=== PATIENT | male | born 1935 | race Caucasian/White ===

== ENCOUNTER → 2016-05-02 | Outpatient (CLI) | payer OTHER, MEDICARE ==
[~2016-05-02] MED LIST: ASPI-461 PO; CALC-354 PO; MULTTAB58 PO; PRS5 PO
--- NOTE | 2016-05-02 10:46 | DIAGNOSTIC IMAGING REPORT ---
ULTRASOUND KIDNEYS AND BLADDER CLINICAL HISTORY: Prostatomegaly. Dysuria. COMPARISON STUDY: Abdominal CT dated 10/25/2008. TECHNIQUE: Real-time, grayscale, and color flow sonography of the kidneys and bladder is performed. Images are reviewed in the transverse and longitudinal planes. FINDINGS: Kidneys: The kidneys demonstrate cortical atrophy. The right kidney measures 10.0 x 4.9 x 5.4 cm and the left kidney measures 10.7 x 4.5 x 5.4 cm. There is no hydronephrosis. No shadowing renal calculi are identified. Small cortical and parapelvic left renal cysts measure up to 2.3 cm. There is no sonographic evidence of solid renal mass lesion. No perinephric fluid is identified. Bladder: The prostate gland appears mildly enlarged and heterogeneous. The bladder wall appears slightly thickened and trabeculated suggesting the sequelae of chronic outlet obstruction. Bilateral ureteral jets were seen. IMPRESSION: 1. The kidneys demonstrate cortical atrophy and are without hydronephrosis. 2. 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 Electronically signed by: Jus Graves M.D. 05/02/2016 10:44 AM Dictated Date/Time: 05/02/2016 10:42 AM
[2016-05-02 13:12] LABS: HEMATOCRIT 44.2 % (42-52); MEAN CELL VOLUME 94.4 fL (80-100); MEAN CORPUSCULAR HEMOGLOBIN 31.6 pg (25-34); MEAN CORPUSCULAR HGB CONC 33.5 g/dl (32-36); MEAN PLATELET VOLUME 10.8 fL (7.4-10.4); PLATELET COUNT 271 K/uL (130-400); RED BLOOD COUNT 4.68 M/uL (4.7-6.1); WHITE BLOOD COUNT 5.87 K/uL (4.8-10.8)
[2016-05-02 13:26] LABS: URINE APPEARANCE CLEAR (CLEAR); URINE BILIRUBIN NEG (NEG); URINE COLOR YELLOW; URINE NITRITE NEG (NEG); URINE SPECIFIC GRAVITY 1.016 (1.000-1.030); UROBILINOGEN NEG (NEG)
[2016-05-02 13:34] LABS: MANUAL MICROSCOPIC REQUIRED? NO; REVIEW REQ? NO
[2016-05-02 13:47] LABS: URINE PROTIEN/CREAT RATIO 0.1 (0-0.2); URINE TOTAL PROTEIN 18.7 mg/dl (0-11.9)
[2016-05-02 13:50] LABS: BLOOD UREA NITROGEN 17 mg/dl (7-18); BUN/CREATININE RATIO 12.3 (10-20); CALCIUM 8.8 mg/dl (8.5-10.1); CARBON DIOXIDE 25 mmol/L (21-32); CHLORIDE 105 mmol/L (98-107); GLUCOSE 104 mg/dl (70-99); POTASSIUM 3.9 mmol/L (3.5-5.1); SODIUM 140 mmol/L (136-145)
[2016-05-02 13:54] LABS: PHOSPHORUS 3.5 mg/dl (2.5-4.9)
== END | disposition home or self-care (01) ==
LOC: C.ULTRBC 09:13
PROVIDERS: ATTEND Internal Medicine Nephrology
DX: N18.3 Chronic kidney disease, stage 3 (moderate) (principal); R31.29 Other microscopic hematuria; N40.0 Benign prostatic hyperplasia without lower urinary tract symptoms; N30.10 Interstitial cystitis (chronic) without hematuria; N26.1 Atrophy of kidney (terminal); R82.99 Other abnormal findings in urine

== ENCOUNTER → 2016-06-14 | Outpatient (CLI) | payer OTHER, MEDICARE | END | disposition home or self-care (01) | LOC: C.PATHSPEC 11:02 | PROVIDERS: ATTEND Urology | DX: N40.0 Benign prostatic hyperplasia without lower urinary tract symptoms (principal) ==

== ENCOUNTER → 2017-03-26 | Outpatient (CLI) | payer OTHER, MEDICARE ==
[2017-03-26 12:26] LABS: BASO % 0.7 %; BASO ABS # 0.05 K/uL (0-0.2); COMPLETE YES; EOS % 0.7 %; HEMATOCRIT 50.9 % (42-52); IG% 0.1 %; LYMPH % 24.5 %; LYMPH ABS # 1.76 K/uL (1.2-3.4); MEAN CELL VOLUME 94.3 fL (80-100); MEAN PLATELET VOLUME 10.4 fL (7.4-10.4); MONO % 6.3 %; NEUT % 67.7 %; PLATELET COUNT 286 K/uL (130-400); WHITE BLOOD COUNT 7.18 K/uL (4.8-10.8)
[2017-03-26 12:37] LABS: ESTIMATED AVERAGE GLUCOSE 128 mg/dl; HA1C FLAG Normal (Normal)
[2017-03-26 12:58] LABS: ALT/SGPT 43 U/L (12-78); AST/SGOT 21 U/L (15-37); BLOOD UREA NITROGEN 17 mg/dl (7-18); BUN/CREATININE RATIO 14.2 (10-20); CARBON DIOXIDE 26 mmol/L (21-32); CHLORIDE 102 mmol/L (98-107); CREATININE 1.19 mg/dl (0.60-1.40); GLUCOSE 100 mg/dl (70-99); MAGNESIUM 2.4 mg/dl (1.8-2.4); POTASSIUM 4.1 mmol/L (3.5-5.1); SODIUM 136 mmol/L (136-145)
[2017-03-26 13:02] LABS: ALB/GLOB RATIO 0.9 (0.9-2); ALKALINE PHOSPHATASE 74 U/L (45-117); CHOLESTEROL 248 mg/dl (0-200); PHOSPHORUS 2.6 mg/dl (2.5-4.9); TRIGLYCERIDES 145 mg/dl (0-150); VERY LOW DENSITY LIPOPROT CALC 29 mg/dl
[2017-03-26 13:03] LABS: CHOLESTEROL/HDL RATIO 2.9; HDL CHOLESTEROL 85 mg/dl; LDL CHOLESTEROL CALCULATED 134 mg/dl
[2017-03-26 13:56] LABS: CREATININE RANDOM URINE 83.5 mg/dl
[2017-03-26 14:07] LABS: RATIO 26.5 mcg/mg (0-30.0)
== END | disposition home or self-care (01) ==
LOC: C.LAB 11:10
PROVIDERS: ATTEND Nurse Practitioner Family
DX: E78.5 Hyperlipidemia, unspecified (principal); R97.20 Elevated prostate specific antigen [PSA]; N18.3 Chronic kidney disease, stage 3 (moderate); R73.03 Prediabetes

== ENCOUNTER → 2017-05-06 | Outpatient (CLI) | payer OTHER, MEDICARE | END | disposition home or self-care (01) | LOC: C.MAMM 14:07 | PROVIDERS: ATTEND Nurse Practitioner Family | DX: M85.851 Other specified disorders of bone density and structure, right thigh (principal); M85.852 Other specified disorders of bone density and structure, left thigh ==

== ENCOUNTER → 2017-06-21 | Outpatient (CLI) | payer OTHER, MEDICARE | END | disposition home or self-care (01) | LOC: C.LABBC 11:03 | PROVIDERS: ATTEND Urology | DX: N40.1 Benign prostatic hyperplasia with lower urinary tract symptoms (principal) ==

== ENCOUNTER → 2017-06-25 | Outpatient (CLI) | payer OTHER, MEDICARE | END | disposition home or self-care (01) | LOC: C.PATHSPEC 17:16 | PROVIDERS: ATTEND Urology | DX: N40.0 Benign prostatic hyperplasia without lower urinary tract symptoms (principal); N30.10 Interstitial cystitis (chronic) without hematuria ==

== ENCOUNTER → 2017-11-11 | Outpatient (CLI) | payer OTHER, MEDICARE ==
[2017-11-11 16:58] LABS: BASO ABS # 0.07 K/uL (0-0.2); EOS % 1.3 %; EOS ABS # 0.09 K/uL (0-0.5); HEMATOCRIT 49.4 % (42-52); HEMOGLOBIN 16.3 g/dL (14.0-18.0); IG# 0.01 K/uL (0.00-0.02); LYMPH % 22.7 %; LYMPH ABS # 1.56 K/uL (1.2-3.4); MEAN CORPUSCULAR HEMOGLOBIN 31.3 pg (25-34); MEAN PLATELET VOLUME 10.8 fL (7.4-10.4); MONO % 8.3 %; MONO ABS # 0.57 K/uL (0.11-0.59); NEUT % 66.6 %; NEUT ABS # 4.57 K/uL (1.4-6.5); PLATELET COUNT 291 K/uL (130-400); RED CELL DISTRIBUTION WIDTH SD 48.3 fL (36.4-46.3); WHITE BLOOD COUNT 6.87 K/uL (4.8-10.8)
[2017-11-11 17:16] LABS: ALKALINE PHOSPHATASE 62 U/L (45-117); ALT/SGPT 38 U/L (12-78); AST/SGOT 18 U/L (15-37); BLOOD UREA NITROGEN 15 mg/dl (7-18); CALCIUM 9.3 mg/dl (8.5-10.1); CARBON DIOXIDE 28 mmol/L (21-32); CREATININE 1.35 mg/dl (0.60-1.40); GLUCOSE 107 mg/dl (70-99); POTASSIUM 4.3 mmol/L (3.5-5.1); SODIUM 137 mmol/L (136-145); TOTAL PROTEIN 7.7 gm/dl (6.4-8.2)
[2017-11-12 06:06] LABS: HEMOGLOBIN A1C 6.2 % (4.5-5.6)
== END | disposition home or self-care (01) ==
LOC: C.LABBC 12:16
PROVIDERS: ATTEND Nurse Practitioner Family
DX: E78.5 Hyperlipidemia, unspecified (principal); R73.03 Prediabetes